=== PATIENT | male | born 1960 | race Caucasian/White ===

== ENCOUNTER 2019-02-06 09:15 | Inpatient (IN) ==
[2019-02-06] MEDS ORDERED: methylPREDNISolone 125 MG/2 ML VIAL IVP ONE (09:21)
[2019-02-06] MEDS ORDERED: Ipratropium/Albuterol Neb 3 ML IH ONE (09:21)
[2019-02-06] MEDS ORDERED: Isovue-370 500 ML BOTTLE IVP ONE (09:29)
[2019-02-06 09:48] LABS: ABG Base Excess 3 mEq/L (-2 to 3); ABG HCO3 29 mEq/L (21-27); ABG Oxygen Saturation 98 % (95-98); ABG PCO2 45 mmHg (35-45); ABG PH 7.41 pH Units (7.32-7.45); ABG PO2 105 mmHg (85-104); ABG TCO2 30 mEq/L (20-26)
[2019-02-06 10:03] LABS: Prothrombin Time 11.3 Seconds (9.4-12.1)
[2019-02-06 10:17] LABS: Basophils % 0.3 %; Eosinophils # 0.1 K/mcL (0.0-0.6); Eosinophils % 1.4 %; Hematocrit 44.1 % (37.5-50.1); Hemoglobin 15.2 g/dL (12.9-16.9); Immature Granulocytes % 0.3 % (0-4); Lymphocytes % 20.9 %; Mean Corpuscular HGB Conc 34.5 g/dL (31.6-35.5); Mean Corpuscular Hemoglobin 32.5 pg (28.0-33.3); Mean Corpuscular Volume 94.4 fL (83.0-100.0); Mean Platelet Volume 10.1 fL (9.4-12.4); Monocytes # 0.7 K/mcL (0.0-1.3); Monocytes % 6.9 %; Neutrophils # 6.8 K/mcL (1.6-8.9); Platelet Count 212 K/mcL (140-400); Red Blood Count 4.67 M/mcL (4.19-5.50); Red Cell Distribution Width 12.3 % (11.5-14.5); Segmented Neutrophils % 70.2 %; White Blood Count 9.7 K/mcL (4.3-11.1)
[2019-02-06 10:22] LABS: Alanine Aminotransferase 16 Units/L (7-52); Albumin 4.6 g/dL (3.5-5.7); Albumin/Globulin Ratio 1.6 (1.1-2.2); Alkaline Phosphatase 112 Units/L (34-104); Aspartate Amino Transferase 15 Units/L (13-39); BUN/Creatinine Ratio 7 (6-26); Bilirubin,Total 0.4 mg/dL (0.3-1.0); Blood Urea Nitrogen 7 mg/dL (8-23); Carbon Dioxide 27 mEq/L (23-29); Chloride 100 mEq/L (98-107); Globulin 2.8 g/dL (2.4-3.5); Glucose 134 mg/dL (70-105); Magnesium 1.9 mg/dL (1.6-2.6); Osmolality,Calculated 288 (280-300); Potassium 3.5 mEq/L (3.5-5.1); Sodium 139 mEq/L (136-145); Total Protein 7.4 g/dL (6.4-8.9); Troponin I < 0.03 ng/mL (< 0.04); eGFR For African Americans > 60 (> 60); eGFR For Non-African Americans > 60 (> 60)
[2019-02-06] MEDS ORDERED: Naloxone 0.4 MG/ML INJ IVP PRN (11:43)
[2019-02-06] MEDS: Azithromycin 500 MG in 0.9 % Sodium Chloride 250 ML IVPB SCH (13:58)
[2019-02-06] MEDS: Ipratropium/Albuterol Neb 3 ML IH SCH ×3 (14:55→21:41)
[2019-02-06] MEDS ORDERED: methylPREDNISolone 125 MG/2 ML VIAL IVP SCH (16:00)
[2019-02-06] MEDS: Diltiazem CD (24hr) 240 MG CAPSULE PO SCH (16:50)
[2019-02-06 17:51] LABS: Adenovirus Not Detected (Not Detect); Bordetella Pertussis Not Detected (Not Detect); Chlamydophila pneumoniae Not Detected (Not Detect); Coronavirus 229E Not Detected (Not Detect); Coronavirus HKU1 Not Detected (Not Detect); Coronavirus NL63 Not Detected (Not Detect); Coronavirus OC43 Not Detected (Not Detect); Human Metapneumovirus Not Detected (Not Detect); Human Rhinovirus/Enterovirus Not Detected (Not Detect); Influenza A Subtype 2009 H1 Not Detected (Not Detect); Influenza B Not Detected (Not Detect); Mycoplasma pneumoniae Not Detected (Not Detect); Parainfluenza Virus 1 Not Detected (Not Detect); Parainfluenza Virus 2 Not Detected (Not Detect); Parainfluenza Virus 3 Not Detected (Not Detect); Parainfluenza Virus 4 Not Detected (Not Detect); Respiratory Syncytial Virus Not Detected (Not Detect)
[2019-02-06] MEDS: traZODone 50 MG TABLET PO SCH (21:08)
[2019-02-06] MEDS: *HR* Heparin 5,000 UNIT/ML VIAL SQ SCH (21:09)
[2019-02-06] MEDS: methylPREDNISolone 125 MG/2 ML VIAL IVP SCH (23:38)
[2019-02-07] MEDS: Ipratropium/Albuterol Neb 3 ML IH SCH ×4 (04:31→22:12)
[2019-02-07] MEDS: *HR* Heparin 5,000 UNIT/ML VIAL SQ SCH ×3 (05:05→21:18)
[2019-02-07] MEDS ORDERED: Isovue-370 500 ML BOTTLE IVP ONE (08:42)
[2019-02-07] MEDS: 0.9 % Sodium Chloride 1,000 ML IVC SCH ×2 (09:43→21:13)
[2019-02-07] MEDS: methylPREDNISolone 125 MG/2 ML VIAL IVP SCH ×3 (09:43→23:40)
[2019-02-07] MEDS: Diltiazem CD (24hr) 240 MG CAPSULE PO SCH (09:43)
[2019-02-07] MEDS: *HR* Acetylcysteine 20% 600 MG/3 ML ORAL SYRINGE PO SCH (09:44)
[2019-02-07] MEDS: Budesonide/Formoterol 160/4.5 1 PUFF INH IH SCH (10:22)
[2019-02-07 11:16] LABS: BUN/Creatinine Ratio 13 (6-26); Blood Urea Nitrogen 12 mg/dL (8-23); Calcium 9.7 mg/dL (8.6-10.3); Carbon Dioxide 25 mEq/L (23-29); Chloride 99 mEq/L (98-107); Glucose 182 mg/dL (70-105); Osmolality,Calculated 288 (280-300); Sodium 137 mEq/L (136-145); eGFR For African Americans > 60 (> 60); eGFR For Non-African Americans > 60 (> 60)
[2019-02-07 11:17] LABS: Troponin I < 0.03 ng/mL (< 0.04)
[2019-02-07] MEDS: Azithromycin 500 MG in 0.9 % Sodium Chloride 250 ML IVPB SCH (12:55)
[2019-02-07] MEDS: traZODone 50 MG TABLET PO SCH (21:12)
[2019-02-07] MEDS ORDERED: Acetaminophen 325 MG TABLET PO PRN (21:26)
[2019-02-07] MEDS ORDERED: GI Cocktail 40 ML EACH PO ONE (23:23)
[2019-02-08] MEDS: Ipratropium/Albuterol Neb 3 ML IH SCH ×4 (04:12→21:27)
[2019-02-08] MEDS: *HR* Heparin 5,000 UNIT/ML VIAL SQ SCH ×3 (05:04→19:19)
[2019-02-08 05:21] LABS: Hematocrit 37.6 % (37.5-50.1); Hemoglobin 12.6 g/dL (12.9-16.9); Mean Corpuscular HGB Conc 33.5 g/dL (31.6-35.5); Mean Corpuscular Hemoglobin 32.6 pg (28.0-33.3); Mean Corpuscular Volume 97.2 fL (83.0-100.0); Mean Platelet Volume 9.6 fL (9.4-12.4); Platelet Count 207 K/mcL (140-400); Red Blood Count 3.87 M/mcL (4.19-5.50); Red Cell Distribution Width 13.1 % (11.5-14.5); White Blood Count 19.9 K/mcL (4.3-11.1)
[2019-02-08 05:23] LABS: VBG HCO3 28 mEq/L (21-27); VBG PCO2 55 mmHg (41-51); VBG PH 7.32 pH Units (7.32-7.42); VBG PO2 49 mmHg (25-50)
[2019-02-08 05:42] LABS: BUN/Creatinine Ratio 16 (6-26); Blood Urea Nitrogen 14 mg/dL (8-23); Calcium 9.1 mg/dL (8.6-10.3); Carbon Dioxide 26 mEq/L (23-29); Chloride 105 mEq/L (98-107); Glucose 143 mg/dL (70-105); Osmolality,Calculated 289 (280-300); Potassium 3.9 mEq/L (3.5-5.1); Sodium 138 mEq/L (136-145); eGFR For African Americans > 60 (> 60); eGFR For Non-African Americans > 60 (> 60)
[2019-02-08] MEDS: Budesonide/Formoterol 160/4.5 1 PUFF INH IH SCH (10:08)
[2019-02-08] MEDS: methylPREDNISolone 125 MG/2 ML VIAL IVP SCH ×3 (10:19→23:54)
[2019-02-08] MEDS: *HR* Acetylcysteine 20% 600 MG/3 ML ORAL SYRINGE PO SCH (10:19)
[2019-02-08] MEDS: 0.9 % Sodium Chloride 1,000 ML IVC SCH ×2 (10:19→17:04)
[2019-02-08] MEDS: Diltiazem CD (24hr) 240 MG CAPSULE PO SCH (10:19)
[2019-02-08] MEDS: Azithromycin 500 MG in 0.9 % Sodium Chloride 250 ML IVPB SCH (13:10)
[2019-02-08] MEDS: traZODone 50 MG TABLET PO SCH (19:19)
[2019-02-08] MEDS ORDERED: Ipratropium/Albuterol Neb 3 ML ONE (21:26)
[2019-02-09] MEDS: Ipratropium/Albuterol Neb 3 ML IH SCH ×4 (04:37→22:13)
[2019-02-09 05:10] LABS: Hematocrit 37.8 % (37.5-50.1); Hemoglobin 13.2 g/dL (12.9-16.9); Mean Corpuscular HGB Conc 34.9 g/dL (31.6-35.5); Mean Corpuscular Hemoglobin 32.8 pg (28.0-33.3); Mean Platelet Volume 9.7 fL (9.4-12.4); Platelet Count 236 K/mcL (140-400); Red Blood Count 4.02 M/mcL (4.19-5.50); Red Cell Distribution Width 13.2 % (11.5-14.5)
[2019-02-09] MEDS: *HR* Heparin 5,000 UNIT/ML VIAL SQ SCH ×3 (05:16→20:55)
[2019-02-09 06:03] LABS: BUN/Creatinine Ratio 20 (6-26); Blood Urea Nitrogen 16 mg/dL (8-23); Calcium 8.4 mg/dL (8.6-10.3); Carbon Dioxide 25 mEq/L (23-29); Chloride 106 mEq/L (98-107); Glucose 128 mg/dL (70-105); Osmolality,Calculated 291 (280-300); Potassium 3.9 mEq/L (3.5-5.1); Sodium 139 mEq/L (136-145); eGFR For African Americans > 60 (> 60); eGFR For Non-African Americans > 60 (> 60)
[2019-02-09] MEDS: Budesonide/Formoterol 160/4.5 1 PUFF INH IH SCH (09:56)
[2019-02-09] MEDS: Azithromycin 500 MG in 0.9 % Sodium Chloride 250 ML IVPB SCH (10:28)
[2019-02-09] MEDS: methylPREDNISolone 125 MG/2 ML VIAL IVP SCH ×3 (10:32→23:04)
[2019-02-09] MEDS: Diltiazem CD (24hr) 240 MG CAPSULE PO SCH (10:33)
[2019-02-09] MEDS: *HR* Acetylcysteine 20% 600 MG/3 ML ORAL SYRINGE PO SCH (10:34)
[2019-02-09] MEDS ORDERED: Ketorolac 15 MG/ML VIAL IM ONE (14:24)
[2019-02-09] MEDS ORDERED: Pantoprazole 40 MG VIAL IVP ONE (14:24)
[2019-02-09] MEDS ORDERED: Isovue-370 500 ML BOTTLE IVP ONE (17:07)
[2019-02-09] MEDS ORDERED: Simethicone 80 MG TAB.CHEW PO PRN (17:18)
[2019-02-09] MEDS: 0.9 % Sodium Chloride 1,000 ML IVC SCH (21:02)
[2019-02-09] MEDS: Simethicone 80 MG TAB.CHEW PO SCH (21:04)
[2019-02-09] MEDS: traZODone 50 MG TABLET PO SCH (21:04)
[2019-02-10] MEDS: *HR* Heparin 5,000 UNIT/ML VIAL SQ SCH ×3 (02:31→20:51)
[2019-02-10] MEDS: Ipratropium/Albuterol Neb 3 ML IH SCH (04:24)
[2019-02-10] MEDS: 0.9 % Sodium Chloride 1,000 ML IVC SCH (05:04)
[2019-02-10 05:56] LABS: VBG HCO3 28 mEq/L (21-27); VBG PCO2 45 mmHg (41-51); VBG PH 7.41 pH Units (7.32-7.42); VBG PO2 172 mmHg (25-50)
[2019-02-10 05:56] LABS: Hematocrit 37.2 % (37.5-50.1); Mean Corpuscular HGB Conc 34.9 g/dL (31.6-35.5); Mean Corpuscular Hemoglobin 32.4 pg (28.0-33.3); Mean Corpuscular Volume 92.8 fL (83.0-100.0); Mean Platelet Volume 9.7 fL (9.4-12.4); Platelet Count 216 K/mcL (140-400); Red Blood Count 4.01 M/mcL (4.19-5.50); Red Cell Distribution Width 13.1 % (11.5-14.5); White Blood Count 14.4 K/mcL (4.3-11.1)
[2019-02-10 06:15] LABS: BUN/Creatinine Ratio 20 (6-26); Blood Urea Nitrogen 15 mg/dL (8-23); Calcium 8.2 mg/dL (8.6-10.3); Carbon Dioxide 28 mEq/L (23-29); Chloride 104 mEq/L (98-107); Glucose 142 mg/dL (70-105); Osmolality,Calculated 293 (280-300); Potassium 3.5 mEq/L (3.5-5.1); Sodium 140 mEq/L (136-145); eGFR For African Americans > 60 (> 60); eGFR For Non-African Americans > 60 (> 60)
[2019-02-10] MEDS: Diltiazem CD (24hr) 240 MG CAPSULE PO SCH (08:56)
[2019-02-10] MEDS: Simethicone 80 MG TAB.CHEW PO SCH ×4 (08:57→20:46)
[2019-02-10] MEDS: methylPREDNISolone 125 MG/2 ML VIAL IVP SCH ×3 (08:57→20:47)
[2019-02-10] MEDS ORDERED: MOM Conc 10 ML UD.LIQ PO ONE (09:09)
[2019-02-10] MEDS: Ipratropium/Albuterol Neb 3 ML IH PRN ×2 (10:45→14:25)
[2019-02-10] MEDS: Budesonide/Formoterol 160/4.5 1 PUFF INH IH SCH (10:45)
[2019-02-10] MEDS: Azithromycin 500 MG in 0.9 % Sodium Chloride 250 ML IVPB SCH (11:58)
[2019-02-10] MEDS: *HR* Acetylcysteine 20% 600 MG/3 ML ORAL SYRINGE PO SCH (14:47)
[2019-02-10] MEDS ORDERED: Milk and Molasses Enema 200 ML RC ONE (14:59)
[2019-02-10] MEDS: traZODone 50 MG TABLET PO SCH (20:46)
[2019-02-11 07:01] LABS: Hematocrit 36.8 % (37.5-50.1); Hemoglobin 12.3 g/dL (12.9-16.9); Mean Corpuscular HGB Conc 33.4 g/dL (31.6-35.5); Mean Corpuscular Hemoglobin 32.1 pg (28.0-33.3); Mean Corpuscular Volume 96.1 fL (83.0-100.0); Mean Platelet Volume 10.2 fL (9.4-12.4); Platelet Count 220 K/mcL (140-400); Red Blood Count 3.83 M/mcL (4.19-5.50); White Blood Count 13.1 K/mcL (4.3-11.1)
[2019-02-11 07:24] LABS: BUN/Creatinine Ratio 22 (6-26); Blood Urea Nitrogen 15 mg/dL (8-23); Calcium 8.1 mg/dL (8.6-10.3); Carbon Dioxide 28 mEq/L (23-29); Chloride 102 mEq/L (98-107); Glucose 141 mg/dL (70-105); Magnesium 2.6 mg/dL (1.6-2.6); Osmolality,Calculated 293 (280-300); Sodium 140 mEq/L (136-145); eGFR For African Americans > 60 (> 60); eGFR For Non-African Americans > 60 (> 60)
[2019-02-11] MEDS: Ipratropium/Albuterol Neb 3 ML IH PRN ×6 (07:45→23:59)
[2019-02-11] MEDS: Budesonide/Formoterol 160/4.5 1 PUFF INH IH SCH (07:45)
[2019-02-11] MEDS: *HR* Heparin 5,000 UNIT/ML VIAL SQ SCH ×3 (09:33→22:21)
[2019-02-11] MEDS: Diltiazem CD (24hr) 240 MG CAPSULE PO SCH (09:36)
[2019-02-11] MEDS: Simethicone 80 MG TAB.CHEW PO SCH ×4 (09:36→19:55)
[2019-02-11] MEDS: methylPREDNISolone 125 MG/2 ML VIAL IVP SCH (09:37)
[2019-02-11] MEDS: *HR* Acetylcysteine 20% 600 MG/3 ML ORAL SYRINGE PO SCH (10:53)
[2019-02-11] MEDS: Azithromycin 500 MG in 0.9 % Sodium Chloride 250 ML IVPB SCH (11:32)
[2019-02-11] MEDS ORDERED: Metoclopramide 10 MG/2 ML VIAL IVP ONE (13:21)
[2019-02-11] MEDS: traZODone 50 MG TABLET PO SCH (19:55)
[2019-02-11] MEDS ORDERED: Metoclopramide 10 MG/2 ML VIAL IVP SCH (21:00)
[2019-02-11] MEDS ORDERED: methylPREDNISolone 125 MG/2 ML VIAL IVP SCH (21:00)
[2019-02-12] MEDS: Ipratropium/Albuterol Neb 3 ML IH PRN ×2 (04:28→07:39)
[2019-02-12] MEDS: *HR* Heparin 5,000 UNIT/ML VIAL SQ SCH (05:17)
[2019-02-12 06:35] VITALS: BP 119/55
[2019-02-12] MEDS: Budesonide/Formoterol 160/4.5 1 PUFF INH IH SCH (07:39)
[2019-02-12] MEDS ORDERED: predniSONE 20 MG TABLET PO SCH (09:00)
[2019-02-12] MEDS: Simethicone 80 MG TAB.CHEW PO SCH (09:35)
[2019-02-12] MEDS: *HR* Acetylcysteine 20% 600 MG/3 ML ORAL SYRINGE PO SCH (09:35)
[2019-02-12] MEDS: Diltiazem CD (24hr) 240 MG CAPSULE PO SCH (09:35)
== END 2019-02-12 09:56 | disposition home or self-care (01) | DRG 190 ==
LOC: EMEROOARM 09:15 → 3BNU 09:15 → SUATTDRO 11:28 → 3BNU 12:25 → SUATTDRO 02-08 11:50
PROVIDERS: ADMIT Internal Medicine; ATTEND Internal Medicine

== ENCOUNTER 2020-10-31 12:34 | Observation (INO) ==
[2020-10-31] MEDS ORDERED: Isovue-370 500 ML BOTTLE IVP ONE (14:18)
[2020-10-31] MEDS ORDERED: 0.9 % Sodium Chloride 1,000 ML IVC ONE ×2 (14:20→16:20)
[2020-10-31] MEDS ORDERED: Aspirin 81 MG TAB.CHEW PO STA (14:20)
[2020-10-31] MEDS ORDERED: Ondansetron 4 MG/2 ML VIAL IVP ONE (14:20)
[2020-10-31] MEDS ORDERED: *HR* FentaNYL (PF) 100 MCG/2 ML VIAL IVP ONE (14:20)
[2020-10-31 15:04] LABS: Basophils # 0.1 K/mcL (0.0-0.2); Basophils % 0.5 %; Eosinophils % 0.4 %; Hematocrit 45.4 % (37.5-50.1); Hemoglobin 15.3 g/dL (12.9-16.9); Immature Granulocytes % 0.3 % (0-4); Lymphocytes # 1.5 K/mcL (0.6-4.6); Mean Corpuscular HGB Conc 33.7 g/dL (31.6-35.5); Mean Corpuscular Hemoglobin 31.3 pg (28.0-33.3); Mean Corpuscular Volume 92.8 fL (83.0-100.0); Mean Platelet Volume 10.1 fL (9.4-12.4); Monocytes # 0.6 K/mcL (0.0-1.3); Monocytes % 6.3 %; Neutrophils # 7.1 K/mcL (1.6-8.9); Platelet Count 261 K/mcL (140-400); Red Blood Count 4.89 M/mcL (4.19-5.50); Red Cell Distribution Width 12.9 % (11.5-14.5); Segmented Neutrophils % 76.5 %; White Blood Count 9.3 K/mcL (4.3-11.1)
[2020-10-31 15:11] LABS: INR 1.1; Prothrombin Time 11.9 Seconds (9.4-12.1)
[2020-10-31 15:14] LABS: Activated Partial Thrombo Time 33.3 Seconds (26.0-36.0)
[2020-10-31 15:42] LABS: BUN/Creatinine Ratio 8 (6-26); Blood Urea Nitrogen 7 mg/dL (8-23); C-Reactive Protein < 5 mg/L (Less than 10); Calcium 9.3 mg/dL (8.6-10.3); Carbon Dioxide 28 mEq/L (23-29); Chloride 103 mEq/L (98-107); Creatine Kinase 2139 Units/L (30-223); Glucose 102 mg/dL (70-105); Osmolality,Calculated 286 (280-300); Potassium 4.1 mEq/L (3.5-5.1); Sodium 139 mEq/L (136-145); Troponin I < 0.03 ng/mL (< 0.04); eGFR For African Americans > 60 (> 60); eGFR For Non-African Americans > 60 (> 60)
[2020-10-31 15:54] LABS: Bilirubin,Urine Negative (Negative); Blood,Urine Negative (Negative); Clarity,Urine Clear (Clear); Color,Urine Colorless (Yellow); Glucose,Urine (UA) Normal (Normal); Ketones,Urine Negative (Negative); Leukocyte Esterase,Urine Negative (Negative); Nitrite,Urine Negative (Negative); Protein,Urine Negative (Neg-Trace); Specific Gravity,Urine 1.011 (1.010-1.025); Urobilinogen,Urine Normal (Normal)
[2020-10-31] MEDS ORDERED: Apixaban 5 MG TABLET PO ONE (16:39)
[2020-10-31] MEDS ORDERED: *HR* HYDROmorphone (PF) 1 MG/ML SYRINGE IVP ONE (17:27)
[2020-10-31] MEDS ORDERED: Acetaminophen 325 MG TABLET PO PRN (18:33)
[2020-10-31] MEDS ORDERED: *HR* HYDROcodone/Acet 5/325 mg TABLET PO PRN (18:33)
[2020-10-31] MEDS ORDERED: Naloxone 0.4 MG/ML INJ IVP PRN (18:33)
[2020-10-31] MEDS ORDERED: Ondansetron 4 MG/2 ML VIAL IVP PRN (18:33)
[2020-10-31] MEDS ORDERED: 0.9 % Sodium Chloride 1,000 ML IVC SCH (18:45)
[2020-10-31] MEDS ORDERED: *HR* Heparin 5,000 UNIT/ML VIAL IVP PRN (18:48)
[2020-10-31] MEDS ORDERED: traZODone 50 MG TABLET PO SCH (21:00)
[2020-10-31] MEDS: Melatonin 3 MG TABLET PO PRN (21:55)
[2020-11-01] MEDS ORDERED: *HR* Heparin 5,000 UNIT/ML VIAL IVP PRN (04:00)
[2020-11-01] MEDS ORDERED: *HR* Heparin 5,000 UNIT/ML VIAL IVP ONE (04:00)
[2020-11-01 04:13] LABS: Hematocrit 37.8 % (37.5-50.1); Mean Corpuscular HGB Conc 33.1 g/dL (31.6-35.5); Mean Corpuscular Hemoglobin 31.4 pg (28.0-33.3); Platelet Count 220 K/mcL (140-400); Red Blood Count 3.98 M/mcL (4.19-5.50); Red Cell Distribution Width 13.1 % (11.5-14.5); Segmented Neutrophils % 61.1 %; White Blood Count 6.9 K/mcL (4.3-11.1)
[2020-11-01 04:14] LABS: Basophils % 0.6 %; Eosinophils # 0.1 K/mcL (0.0-0.6); Eosinophils % 1.5 %; Hemoglobin 12.5 g/dL (12.9-16.9); Immature Granulocytes % 0.3 % (0-4); Lymphocytes # 1.9 K/mcL (0.6-4.6); Lymphocytes % 27.5 %; Monocytes # 0.6 K/mcL (0.0-1.3); Neutrophils # 4.2 K/mcL (1.6-8.9)
[2020-11-01 04:22] LABS: INR 1.3; Prothrombin Time 14.5 Seconds (9.4-12.1)
[2020-11-01 04:27] LABS: BUN/Creatinine Ratio 11 (6-26); Blood Urea Nitrogen 9 mg/dL (8-23); Calcium 8.3 mg/dL (8.6-10.3); Carbon Dioxide 28 mEq/L (23-29); Chloride 106 mEq/L (98-107); Chol/HDL Ratio 2.1 (0-4.9); Cholesterol 89 mg/dL (< 200); Creatine Kinase 2494 Units/L (30-223); Glucose 91 mg/dL (70-105); HDL Cholesterol 43 mg/dL (40-59); LDL Cholesterol,Calculated 34 mg/dL (< 100); Osmolality,Calculated 284 (280-300); Potassium 4.2 mEq/L (3.5-5.1); Sodium 138 mEq/L (136-145); Triglycerides 58 mg/dL (< 150); eGFR For African Americans > 60 (> 60); eGFR For Non-African Americans > 60 (> 60)
[2020-11-01 05:29] LABS: Activated Partial Thrombo Time 33.5 Seconds (26.0-36.0)
[2020-11-01] MEDS: 0.9 % Sodium Chloride 1,000 ML IVC SCH ×2 (08:21→16:15)
[2020-11-01] MEDS: *HR* OxyCODONE Immed Rel 5 MG TABLET PO PRN ×2 (08:22→17:31)
[2020-11-01 09:05] LABS: Influenza A PCR Negative (Negative); Influenza B PCR Negative (Negative); Resp. Syncytial Virus PCR Negative (Negative)
[2020-11-01 09:06] LABS: SARS-CoV-2 by PCR (In House) Negative (Negative)
[2020-11-01] MEDS: Heparin 25,000UNIT/250ML 1/2NS 25,000 UNIT/250 ML IV.SOLN IVC SCH (09:12)
[2020-11-01 13:02] LABS: Hematocrit 39.1 % (37.5-50.1); Hemoglobin 12.6 g/dL (12.9-16.9)
[2020-11-01] MEDS ORDERED: traZODone 50 MG TABLET PO SCH (21:00)
[2020-11-01] MEDS: Melatonin 3 MG TABLET PO PRN (21:43)
[2020-11-02] MEDS: 0.9 % Sodium Chloride 1,000 ML IVC SCH (01:05)
[2020-11-02 05:55] LABS: Basophils % 0.5 %; Eosinophils # 0.2 K/mcL (0.0-0.6); Eosinophils % 2.1 %; Hematocrit 39.3 % (37.5-50.1); Hemoglobin 12.9 g/dL (12.9-16.9); Immature Granulocytes % 0.1 % (0-4); Lymphocytes # 2.1 K/mcL (0.6-4.6); Lymphocytes % 27.5 %; Mean Corpuscular HGB Conc 32.8 g/dL (31.6-35.5); Mean Corpuscular Hemoglobin 31.5 pg (28.0-33.3); Mean Corpuscular Volume 95.9 fL (83.0-100.0); Monocytes # 0.6 K/mcL (0.0-1.3); Monocytes % 7.7 %; Neutrophils # 4.6 K/mcL (1.6-8.9); Platelet Count 196 K/mcL (140-400); Red Cell Distribution Width 12.9 % (11.5-14.5); Segmented Neutrophils % 62.1 %; White Blood Count 7.5 K/mcL (4.3-11.1)
[2020-11-02] MEDS: cilostazoL 100 MG TABLET PO SCH ×2 (05:58→09:11)
[2020-11-02 06:19] LABS: BUN/Creatinine Ratio 11 (6-26); Blood Urea Nitrogen 8 mg/dL (8-23); Calcium 8.6 mg/dL (8.6-10.3); Carbon Dioxide 27 mEq/L (23-29); Chloride 107 mEq/L (98-107); Glucose 88 mg/dL (70-105); Osmolality,Calculated 286 (280-300); Potassium 4.2 mEq/L (3.5-5.1); Sodium 139 mEq/L (136-145); eGFR For African Americans > 60 (> 60); eGFR For Non-African Americans > 60 (> 60)
[2020-11-02 06:22] LABS: INR 1.1; Prothrombin Time 12.8 Seconds (9.4-12.1)
[2020-11-02] MEDS: Heparin 25,000UNIT/250ML 1/2NS 25,000 UNIT/250 ML IV.SOLN IVC SCH (08:51)
[2020-11-02] MEDS ORDERED: Azithromycin 250 MG TABLET PO SCH (09:00)
[2020-11-02 10:49] VITALS: BP 121/69; PULSE 82; TEMP 98.2; O2SAT 91
[2020-11-02] MEDS ORDERED: Apixaban 5 MG TABLET PO SCH (12:00)
[2020-11-02] MEDS ORDERED: Aspirin 81 MG TAB.CHEW PO SCH (12:00)
== END 2020-11-02 13:10 | disposition home or self-care (01) ==
LOC: 3ANU 12:34 → EMEROOARM 12:34 → SUATTDRO 18:11 → 3ANU 19:41
PROVIDERS: ADMIT Internal Medicine; ATTEND Internal Medicine